=== PATIENT | female | born 1980 | race Caucasian/White ===

== ENCOUNTER → 2022-06-07 | Outpatient (REF) | payer BC | LOC: M LAB REF 17:05 | PROVIDERS: ATTEND Otolaryngology | DX: H65.21 Chronic serous otitis media, right ear (principal) ==

== ENCOUNTER → 2022-08-25 | Outpatient (CLI) | payer BC | LOC: M PLAIMG 07:48 | PROVIDERS: ATTEND Physician Assistant | DX: H73.893 Other specified disorders of tympanic membrane, bilateral (principal) ==